=== PATIENT | male | born 1990 | race Caucasian/White ===

== ENCOUNTER → 2022-03-18 | Outpatient (CLI) | payer BC ==
[2022-03-18 19:15] LABS: ALT 76 U/L (10-49); AST 34 U/L (14-35); African American GFR (CKD) 117.6 (60.0-200.0); Albumin 4.7 g/dL (3.8-4.9); Albumin/Globulin Ratio 1.77 (1.60-3.17); Alkaline Phosphatase 58 U/L (41-126); BUN/Creat Ratio 14.13 Ratio (12.00-20.00); Blood Urea Nitrogen 14.1 mg/dL (9.0-27.0); Calcium 9.5 mg/dL (8.7-10.3); Carbon Dioxide 25.4 mmol/L (20.0-27.5); Chloride 102 mmol/L (96-109); Globulin 2.7 g/dL (1.6-3.3); Glucose 96 mg/dL (70-110); Non-African American GFR(CKD) 101.5 (60.0-200.0); Potassium 4.2 mmol/L (3.5-5.5); Sodium 140 mmol/L (135-145); Total Bilirubin <0.15 mg/dL (0.30-1.20); Total Protein 7.4 g/dL (6.2-8.2)
[2022-03-19 11:48] LABS: HCV Qualitative Result Not detected (Not detected); HCV Quant Log <1.08 (<1.08); HCV Quantitative Result <12 IU/mL (<12)
== END | disposition home or self-care (01) ==
LOC: LABWHC1 14:09
PROVIDERS: ATTEND Internal Medicine Gastroenterology
DX: Z86.19 Personal history of other infectious and parasitic diseases (principal)
CPT/HCPCS: 36415; 80053; 87522

== ENCOUNTER 2023-05-16 17:23 | Emergency (ER) | payer BC ==
--- NOTE | 2023-05-16 17:50 | ED ---
Chest Pain HPI - General Chief Complaint: Chest Pain Stated Complaint: Chest pain/SOB Time Seen by Provider: 05/16/23 17:39 Source: patient Mode of arrival: ambulatory Limitations: no limitations - History of Present Illness Initial Comments: 32-year-old male with a past medical history significant for hypertension presenting to the ED with a chief complaint of chest pain. Patient states shortly arriving at [place] 3 days ago started to feel some intermittent pains on the left side of his chest. Pain worse with activity. Today, states he got more short of breath than usual going up the stairs which prompted presentation to the ED for further evaluation. At this time reports no chest pain, palpitations, shortness of breath. Otherwise denies any other symptoms. He does note his dad had a heart attack at age 28. Was supposed to [facility] with [facility] earlier in the month however reports that that appointment was canceled and he was unable to reschedule. No other complaints at this time. Patient is a non-smoker. - Related Data Home Medications Medication Instructions Recorded Confirmed Benazepril HCl 20 mg PO HS 05/16/23 05/16/23 Allergies Allergy/AdvReac Type Severity Reaction Status Date / Time No Known Allergies Allergy Verified 05/16/23 19:51 Review of Systems ROS Statement: Those systems with pertinent positive or pertinent negative responses have been documented in the HPI. ROS Other: All systems not noted in ROS Statement are negative. Past Medical History Past Medical History: Hypertension History of Any Multi-Drug Resistant Organisms: MRSA Date of last positivie culture/infection: 2011 MDRO Source:: leg Additional Past Surgical History / Comment(s): leg surgery Past Psychological History: No Psychological Hx Reported Smoking Status: Never smoker Past Alcohol Use History: None Reported Past Drug Use History: None Reported General Exam Limitations: no limitations General appearance: alert, in no apparent distress, obese Neck exam: Present: normal inspection Respiratory exam: Present: normal lung sounds bilaterally Cardiovascular Exam: Present: regular rate, normal rhythm GI/Abdominal exam: Present: soft Neurological exam: Present: alert, oriented X3 Skin exam: Present: warm, dry Course Vital Signs 05/16/23 05/16/23 05/16/23 17:31 17:59 18:32 Temperature 98.2 F Pulse Rate 78 74 84 Respiratory 18 20 18 Rate Blood Pressure 173/94 140/71 110/54 O2 Sat by Pulse 99 99 97 Oximetry 03/09/24 03/09/24 19:14 20:15 Temperature Pulse Rate 67 74 Respiratory 15 14 Rate Blood Pressure 113/57 106/67 O2 Sat by Pulse 97 96 Oximetry Chest Pain MDM - MDM Was pt. sent in by a medical professional or institution (, [facility], PHARMACEUTICAL ENGINEER, urgent care, hospital, or residential...) When possible be specific @ -No Did you speak to anyone other than the patient for history (EMS, parent, family, police, friend...)? What history was obtained from this source @ -No Did you review nursing and triage notes (agree or disagree)? Why? @ -I reviewed and agree with nursing and triage notes Were old charts reviewed (outside hosp., previous admission, EMS record, old EKG, old radiological studies, urgent care reports/EKG's, residential records)? Report findings @ -No old charts were reviewed Differential Diagnosis (chest pain, altered mental status, abdominal pain women, abdominal pain men, vaginal bleeding, weakness, fever, dyspnea, syncope, headache, dizziness, GI bleed, back pain, seizure, CVA, palpatations, mental health, musculoskeletal)? @ -Differential Chest Pain: Stable Angina, Unstable Angina, STEMI, NSTEMI Aortic Dissection, Pneumothorax, Musculoskeletal, Esophageal Spasm GERD, Cholecystitis, Pancreatitis, Zoster, this is not meant to be an all-inclusive list. EKG interpreted by me (3pts min.). @ -EKG interpreted me showing a sinus rhythm without acute changes. Rate of 65 bpm. VT 144, QRS 89, QT/QTc 364/376. X-rays interpreted by me (1pt min.). @ -Chest x-ray inter by me showing no evidence of acute process. CT interpreted by me (1pt min.). @ -None done U/S interpreted by me (1pt. min.). @ -None done What testing was considered but not performed or refused? (CT, X-rays, U/S, labs)? Why? @ -None What meds were considered but not given or refused? Why? @ -None Did you discuss the management of the patient with other professionals (professionals i.e. [facility] Rodriguez, PHARMACEUTICAL ENGINEER, lab, RT, psych nurse, social media intern, professor of chemistry, teacher, geographic area intelligence officer, welfare case worker)? Give summary @ -No Was smoking cessation discussed for >3mins.? @ -No Was critical care preformed (if so, how long)? @ -No Were there social determinants of health that impacted care today? How? (Homelessness, low income, unemployed, alcoholism, drug addiction, transportation, low edu. Level, literacy, decrease access to med. care, fpc, rehab)? @ -No Was there de-escalation of care discussed even if they declined (Discuss DNR or withdrawal of care, Hospice)? DNR status @ -No What co-morbidities impacted this encounter? (DM, HTN, Smoking, COPD, CAD, Cancer, CVA, ARF, Chemo, Hep., AIDS, mental health diagnosis, sleep apnea, morbid obesity)? @ -Hypertension Was patient admitted / discharged? Hospital course, mention meds given and route, prescriptions, significant lab abnormalities, going to OR and other pertinent info. @ -Discharge 32-year-old male presenting to the ED with complaints of chest pain over the past 3 days and today noticed she is more short of breath than usual when going up the stairs. Does note some recent travel to [place] prior to onset of symptoms. At this time reports no chest pain, shortness of breath, palpitations. Laboratory studies reviewed. CBC CMP unremarkable. D-dimer negative. Troponin x 2 undetectable. Chest x-ray revealed no acute process. In light of significant family history with his father having a heart attack at age 28 patient was offered observation to see cardiology however at this time patient declines. Patient states that he will follow-up with them outpatient. Discharged home in stable condition. Vital signs stable afebrile discharge. Discussed strict return precautions with patient who verbalized agreement. Has a HEART score of 1. Undiagnosed new problem with uncertain prognosis? @ -No Drug Therapy requiring intensive monitoring for toxicity (Heparin, Nitro, Insulin, Cardizem)? @ -No Were any procedures done? @ -No Diagnosis/symptom? @ -Chest pain Acute, or Chronic, or Acute on Chronic? @ -Acute Uncomplicated (without systemic symptoms) or Complicated (systemic symptoms)? @ -Uncomplicated Side effects of treatment? @ -No Exacerbation, Progression, or Severe Exacerbation? @ -No Poses a threat to life or bodily function? How? (Chest pain, [place], [place], pneumonia, PE, COPD, DKA, ARF, appy, cholecystitis, CVA, Diverticulitis, Homicidal, Suicidal, threat to staff... and all critical care pts) @ -Unlikely Disposition Clinical Impression: Chest pain Disposition: HOME SELF-CARE Condition: Good Instructions (If sedation given, give patient instructions): Chest Pain (ED) Additional Instructions: Please return to the Emergency Department if symptoms worsen or any other concerns. Please follow-up with cardiology. Is patient prescribed a controlled substance at d/c from ED?: No Referrals: Onel Viramontes MD [Primary Care Provider] - 1-2 days Francis Hopper MD [STAFF PHYSICIAN] - 1-2 days Time of Disposition: 20:40
--- NOTE | 2023-05-16 18:04 | XR ---
EXAMINATION TYPE: XR chest 2V DATE OF EXAM: 05/16/2023 COMPARISON: 05/15/2014 HISTORY: 32-year-old male with chest pain TECHNIQUE: PA and lateral views FINDINGS: The cardiomediastinal silhouette, aorta, and pulmonary vasculature are within normal limits. Lungs an d pleural spaces are clear. IMPRESSION: No acute cardiopulmonary process.
[2023-05-16 18:11] LABS: Basophils # (A) 0.1 k/uL (0-0.2); Basophils % (A) 1 %; Eosinophils # (A) 0.2 k/uL (0-0.7); Eosinophils % (A) 3 %; HCT 43.6 % (39.0-53.0); HGB 14.7 gm/dL (13.0-17.5); Lymphocytes # (A) 3.2 k/uL (1.0-4.8); Lymphocytes % (A) 36 %; MCH 30.7 pg (25.0-35.0); MCHC 33.6 g/dL (31.0-37.0); MCV 91.3 fL (80.0-100.0); Monocytes # (A) 0.5 k/uL (0-1.0); Monocytes % (A) 5 %; Neutrophils # (A) 4.9 k/uL (1.3-7.7); Neutrophils % (A) 54 %; Platelet Count 242 k/uL (150-450); RBC 4.77 m/uL (4.30-5.90); WBC 9.1 k/uL (3.8-10.6)
[2023-05-16 18:25] LABS: ALT 30 U/L (4-49); AST 31 U/L (17-59); African American GFR (CKD) >90 (>60 ml/min/1.73 sqM); Albumin 4.8 g/dL (3.5-5.0); Alkaline Phosphatase 52 U/L (38-126); Anion Gap 7 mmol/L; Blood Urea Nitrogen 21 mg/dL (9-20); Calcium 9.6 mg/dL (8.4-10.2); Carbon Dioxide 28 mmol/L (22-30); Chloride 106 mmol/L (98-107); Glucose 110 mg/dL (74-99); Magnesium 1.9 mg/dL (1.6-2.3); Non-African American GFR(CKD) 90 (>60 ml/min/1.73 sqM); Potassium 4.1 mmol/L (3.5-5.1); Sodium 141 mmol/L (137-145); Total Bilirubin 0.3 mg/dL (0.2-1.3); Total Protein 7.6 g/dL (6.3-8.2)
[2023-05-16 18:26] VITALS: TEMP 98.2
[2023-05-16 18:40] LABS: Partial Thromboplastin Time 24.9 sec (22.0-30.0); Prothrombin Time 11.1 sec (10.0-12.5)
[2023-05-16 21:31] VITALS: BP 131/76; PULSE 80; RESP 16
== END 2023-05-16 21:05 | disposition home or self-care (01) ==
LOC: EC 17:23
DX: R07.89 Other chest pain (principal); I10 Essential (primary) hypertension; Z79.899 Other long term (current) drug therapy
CPT/HCPCS: 36415; 71046; 80053; 83735; 84484; 85025; 85379; 85610; 85730; 93005; 99285

== ENCOUNTER → 2024-01-08 | Outpatient (CLI) | payer BC ==
--- NOTE | 2024-01-08 17:37 | XR ---
EXAMINATION TYPE: XR lumbosacral spine 5V DATE OF EXAM: 01/08/2024 1:07 PM COMPARISON: None CLINICAL INDICATION: Male, 33 years old with history of [id number] LOW BACK PAIN, , FINDINGS: 5 lumbar type vertebral bodies. Slightly limited assessment of the left pars region due to the degree of obliquity. There is mild facet arthropathy in the lower lumbar spine. Vertebral body heights are preserved. Minimal disc space narrowing L4-L5. Alignment is maintained. IMPRESSION: Mild facet arthropathy lower lumbar spine. Suspect some underlying degenerative disc space narrowing L4-L5. No vertebral compression collapse or malalignment. [facility], , 01/08/2024 5:35 PM
== END | disposition home or self-care (01) ==
LOC: RADXRMAIN 12:35
PROVIDERS: ATTEND Family Medicine
DX: M47.816 Spondylosis without myelopathy or radiculopathy, lumbar region (principal)
CPT/HCPCS: 72110